=== PATIENT | male | born 1960 | race Caucasian/White ===

== ENCOUNTER 2020-10-30 15:06 | Inpatient (IN) ==
[2020-10-30] MEDS ORDERED: ZOFRAN INJ 4 MG VIAL IVP PRN (15:21)
[2020-10-30] MEDS ORDERED: REFLEX: PROVENTIL NEB & PulmiCORT NEB~ NEB SCH (15:30)
[2020-10-30] MEDS ORDERED: NS 1000 ML 1,000 ML IV SCH (16:00)
[2020-10-30] MEDS ORDERED: REGEN-COV VIAL 10 ML, DRUG FILTER EXTENSION SET * 1 EA in NS 100 ML IV 100 ML IV ONE ×2 (16:19)
[2020-10-30] MEDS ORDERED: SOLU-Medrol 125 MG VIAL IVP ONE (16:19)
[2020-10-30] MEDS ORDERED: TYLENOL 325 MG TAB PO ONE (16:19)
[2020-10-30] MEDS ORDERED: BENADRYL INJ 50 MG VIAL IV ONE (16:19)
[2020-10-30 16:35] LABS: BASOPHILS % (AUTO) 0.5 % (0.2-1.0); EOSINOPHILS % (AUTO) 0.4 % (0.9-2.9); HEMATOCRIT 46.7 % (42.0-54.0); HEMOGLOBIN 16.1 g/dL (13.5-18.0); LYMPHOCYTES # (AUTO) 1.1 X10^3/uL (1.3-2.9); LYMPHOCYTES % (AUTO) 17.4 % (21.0-51.0); MEAN CORPUSCULAR HEMOGLOBIN 30.5 pg (27.0-34.0); MEAN CORPUSCULAR HGB CONC 34.5 g/dL (33.0-35.0); MEAN CORPUSCULAR VOLUME 88.5 fL (80.0-100.0); MEAN PLATELET VOLUME 9.3 fL (7.4-11.0); MONOCYTES # (AUTO) 0.6 x10^3/uL (0.3-0.8); MONOCYTES % (AUTO) 8.8 % (0.0-13.0); NEUTROPHILS # (AUTO) 4.7 x10^3/uL (2.2-4.8); NEUTROPHILS % (AUTO) 72.9 % (42.0-75.0); PLATELET COUNT 184 X10^3/uL (150.0-450.0); RED BLOOD COUNT 5.27 X10^6/uL (4.7-6.0); RED CELL DISTRIBUTION WIDTH 13.9 % (11.6-16.5); WHITE BLOOD COUNT 6.4 X10^3/uL (3.6-10.0)
[2020-10-30 16:46] LABS: ALANINE AMINOTRANSFERASE 28 Units/L (12-78); ALBUMIN 2.7 g/dL (3.4-5.0); ALKALINE PHOSPHATASE 67 Units/L (46-116); ASPARTATE AMINO TRANSFERASE 62 Units/L (15-37); BLOOD UREA NITROGEN 43 mg/dL (7-18); CALCIUM 8.2 mg/dL (8.5-10.1); CARBON DIOXIDE 25.5 mmol/L (21-32); CHLORIDE 98 mmol/L (98-107); COR CA(FOR HYPOALB) 9.2 mg/dL (8.5-10.1); CREATININE 2.27 mg/dL (0.70-1.30); SODIUM 132 mmol/L (136-145); TOTAL PROTEIN 7.9 g/dL (6.4-8.2); TROPONIN I < 0.02 ng/mL (0-1.5); eGFR NON BLACK RACES 31 (>60)
[2020-10-30 17:42] LABS: ABG BASE EXCESS -1.8 mmol/L (-2.0-2.0); ABG HCO3 21.9 mmol/L (22-26)
[2020-10-30 17:45] VITALS: BMI 27.4
[2020-10-30] MEDS: D5 1/2 NS 1000 ML 1,000 ML IV SCH ×2 (18:03→23:25)
--- NOTE | 2020-10-30 18:52 | RAD ---
HISTORYHYPOXIA, COVID EXPOSURESTUDYCHEST, 1 [id number] areas of opacity are present in the peripheral lungs, left side more than right. Findings suggest bronchopneumonia. Findings were not present on the study from 2018.No pleural effusion or pneumothorax.Heart size is normal.Old posttraumatic changes in the proximal right humerus.IMPRESSION1. Findings consistent with bronchopneumoniaElectronically signed by: Todd Joe (Oct 30, 2020 18:50:39)
--- NOTE | 2020-10-30 19:09 | DR.H&P ---
H&P History & Physical for Day of: H&P Date: 10/30/20 Chief Complaint Chief Complaint: SOB/ Weakness/ Covid-19 Exposure Allergies Allergies Allergy/AdvReac Type Severity Reaction Status Date / Time No Known Drug Allergies Allergy Verified 11/23/17 01:08 History of Present Illness History of Present Illness: 59 yo wm with acute SOB, Weakness and hypoxia. His was diagnosed recently with Covid-19. I suspect the patient has Covid-19. Will admit to hospital for rapid testing and treatment. Past Medical History Past Medical History: CVA, Hypertension and MD Past Surgical History Surgical History: Angioplasty/Stents and Ortho Surgery Family History Family Medical History: Diabetes Mellitus, Cancer, MD, Coronary Artery Disease and Hypertension Social History Does patient currently use any type of tobacco product: No Have you used tobacco products in the last 12 months: Yes Type of Tobacco Use: Cigarettes Does any household member use tobacco: No Alcohol Use: None Drug Use: None Medications Home Medications: No Known Drug Allergies Allergy (Verified 11/23/17 01:08) Labs Result Diagrams: 10/31/20 05:30 10/31/20 05:30 Labs: Laboratory WBC 6.4 X10^3/uL (3.6-10.0) 10/30/20 16: RBC 5.27 X10^6/uL (4.7-6.0) 10/30/20 16:21 Hgb 16.1 g/dL (13.5-18.0) 10/30/20 16:21 Hct 46.7 % (42.0-54.0) 10/30/20 16:21 MCV 88.5 fL (80.0-100.0) 10/30/20 16:21 MCH 30.5 pg (27.0-34.0) 10/30/20 16:21 MCHC 34.5 g/dL (33.0-35.0) 10/30/20 16:21 RDW 13.9 % (11.6-16.5) 10/30/20 16:21 Plt Count 184 X10^3/uL (150.0-450.0) 10/30/20 16:21 MPV 9.3 fL (7.4-11.0) 10/30/20 16:21 Neut % (Auto) 72.9 % (42.0-75.0) 10/30/20 16:21 Lymph % (Auto) 17.4 % (21.0-51.0) L 10/30/20 16:21 [place] % (Auto) 8.8 % (0.0-13.0) 10/30/20 16:21 Eos % (Auto) 0.4 % (0.9-2.9) L 10/30/20 16:21 Baso % (Auto) 0.5 % (0.2-1.0) 10/30/20 16:21 Neut # (Auto) 4.7 x10^3/uL (2.2-4.8) 10/30/20 16:21 Lymph # (Auto) 1.1 X10^3/uL (1.3-2.9) L 10/30/20 16:21 [place] # (Auto) 0.6 x10^3/uL (0.3-0.8) 10/30/20 16:21 Eos # (Auto) 0.0 x10^3/uL (0.0-0.2) 10/30/20 16:21 Baso # (Auto) 0.0 X10^3/uL (0.0-0.1) 10/30/20 16:21 Absolute Nucleated RBC 0.1 /100WBC 10/30/20 16:21 Sample Site Rb 10/30/20 17:39 ABG pH 7.430 (7.35-7.45) 10/30/20 17:39 ABG pCO2 33.0 mmHg (35.0-45.0) L 10/30/20 17:39 ABG pO2 47.0 mmHg (80.0-100.0) L* 10/30/20 17:39 ABG HCO3 21.9 mmol/L (22-26) L 10/30/20 17:39 ABG O2 Saturation 84.0 % (90-100) L* 10/30/20 17:39 ABG Base Excess -1.8 mmol/L (-2.0-2.0) 10/30/20 17:39 Jeff Test N/a 10/30/20 17:39 A-a Gradient 61.0 mmHg 10/30/20 17:39 FiO2 21.0 10/30/20 17:39 Blood Gas Comments Pt eagle well eb 10/30/20 17:39 Sodium 132 mmol/L (136-145) L 10/30/20 16:21 Corrected Sodium TNP 10/30/20 16:21 Potassium 4.6 mmol/L (3.5-5.1) 10/30/20 16:21 Chloride 98 mmol/L (98-107) 10/30/20 16:21 Carbon Dioxide 25.5 mmol/L (21-32) 10/30/20 16:21 BUN 43 mg/dL (7-18) H 10/30/20 16:21 Creatinine 2.27 mg/dL (0.70-1.30) H 10/30/20 16:21 Est GFR (MDRD) Af Amer 38 (>60) L 10/30/20 16:21 Est GFR (MDRD) Non-Af 31 (>60) L 10/30/20 16:21 Glucose 99 mg/dL (65-99) 10/30/20 16:21 Calcium 8.2 mg/dL (8.5-10.1) L 10/30/20 16:21 Corrected Calcium 9.2 mg/dL (8.5-10.1) 10/30/20 16:21 Total Bilirubin 0.50 mg/dL (0.2-1.0) 10/30/20 16:21 AST 62 Units/L (15-37) H 10/30/20 16:21 ALT 28 Units/L (12-78) 10/30/20 16:21 Alkaline Phosphatase 67 Units/L (46-116) 10/30/20 16:21 Troponin I < 0.02 ng/mL (0-1.5) 10/30/20 16:21 Total Protein 7.9 g/dL (6.4-8.2) 10/30/20 16:21 Albumin 2.7 g/dL (3.4-5.0) L 10/30/20 16:21 Globulin 5.2 g/dL (2.5-4.5) H 10/30/20 16:21 Albumin/Globulin Ratio 0.5 Ratio (1.1-2.1) L 10/30/20 16:21 SARS-CoV-2 (PCR) Positive (NEGATIVE) A 10/30/20 16:35 Influenza Type A (PCR) Negative (NEGATIVE) 10/30/20 16:35 Influenza Type B (PCR) Negative (NEGATIVE) 10/30/20 16:35 RSV (PCR) Negative (NEGATIVE) 10/30/20 16:35 SARS CoV-2 RNA Rapid JEIMY Positive (NEGATIVE) A 10/30/20 16:05 Review of Systems Constitutional: Weakness and Malaise Eyes: No Symptoms Reported ENT: No Symptoms Reported Respiratory: Cough and Shortness of Breath Cardiovascular: No Symptoms Reported Gastrointestinal: Nausea and Vomiting Genitourinary: No Symptoms Reported Musculoskeletal: No Symptoms Reported Skin: No Symptoms Reported Neurological: Weakness Physical Exam Vital Signs: Temperature 98.2 F Pulse Rate 71 Respiratory Rate 24 Blood Pressure [Left Arm] 156/93 Blood Pressure 121/65 O2 Sat by Pulse Oximetry 88 Oriented: Unable to test Eyes: Normal Ear: Normal Nose: Normal Throat: Normal Respiratory: Diminished Throughout Cardiovascular: Normal : Normal Auscultation: Bowel Sounds: Normal Palpation: Normal Tenderness: Normal Skin: Normal Musculoskeletal: Normal Psychiatric: Normal Mood Description: Appropriate Affect: Normal Speech Pattern: Appropriate Assessment/Plan (1) SOB (shortness of breath): Status: Acute Plan: Albuterol nebs/ Covid Protocol. (2) Hypotension: Status: Acute Plan: IVF (3) Weakness: Status: Acute Plan: Treat patients current problems. (4) Dehydration: Status: Acute (5) Hyponatremia: Status: Acute Plan: IV hydration (6) COVID-19: Narrative Support Text: SOB Status: Acute Plan: Regen Cov Review H&P Reviewed: Yes Patient was examined?: Yes
[2020-10-30] MEDS: ZINC SULFATE PO SCH (20:24)
[2020-10-30] MEDS: PEPCID TAB 40 MG PO SCH (20:24)
[2020-10-30] MEDS: ASCORBIC ACID INJ MULTI-DOSE VIAL 1,500 MG in NS 100 ML IV 100 ML IV SCH (20:25)
[2020-10-30] MEDS: LOVENOX INJ 30 MG SYR SC SCH (20:26)
[2020-10-30] MEDS: VIBRAMYCIN 100 MG in D5W 250 ML IV 250 ML IV SCH (20:57)
[2020-10-30] MEDS: PULMICORT NEB TX 0.5 MG NEB SCH (21:00)
[2020-10-30] MEDS: ZOSYN VIAL 3.375 GRAMS 3.375 G in NS 50 ML IV + SPIKE MINIBAG* 50 ML IV SCH (22:59)
[2020-10-31] MEDS: ASCORBIC ACID INJ MULTI-DOSE VIAL 1,500 MG in NS 100 ML IV 100 ML IV SCH ×4 (02:37→20:12)
[2020-10-31] MEDS: D5 1/2 NS 1000 ML 1,000 ML IV SCH (04:49)
[2020-10-31] MEDS: ZOSYN VIAL 3.375 GRAMS 3.375 G in NS 50 ML IV + SPIKE MINIBAG* 50 ML IV SCH ×3 (05:00→22:46)
[2020-10-31 06:18] LABS: BASOPHILS % (AUTO) 0.4 % (0.2-1.0); HEMATOCRIT 40.4 % (42.0-54.0); HEMOGLOBIN 13.9 g/dL (13.5-18.0); LYMPHOCYTES # (AUTO) 0.8 X10^3/uL (1.3-2.9); LYMPHOCYTES % (AUTO) 27.4 % (21.0-51.0); MEAN CORPUSCULAR HEMOGLOBIN 30.5 pg (27.0-34.0); MEAN CORPUSCULAR HGB CONC 34.4 g/dL (33.0-35.0); MEAN CORPUSCULAR VOLUME 88.6 fL (80.0-100.0); MEAN PLATELET VOLUME 9.5 fL (7.4-11.0); MONOCYTES # (AUTO) 0.2 x10^3/uL (0.3-0.8); NEUTROPHILS # (AUTO) 1.9 x10^3/uL (2.2-4.8); NEUTROPHILS % (AUTO) 65.2 % (42.0-75.0); PLATELET COUNT 148 X10^3/uL (150.0-450.0); RED BLOOD COUNT 4.56 X10^6/uL (4.7-6.0); RED CELL DISTRIBUTION WIDTH 13.8 % (11.6-16.5)
[2020-10-31 06:31] LABS: ALBUMIN 2.2 g/dL (3.4-5.0); CALCIUM 7.9 mg/dL (8.5-10.1); CARBON DIOXIDE 22.4 mmol/L (21-32); COR CA(FOR HYPOALB) 9.3 mg/dL (8.5-10.1); CREATININE 2.2 mg/dL (0.70-1.30); TOTAL PROTEIN 6.8 g/dL (6.4-8.2)
[2020-10-31] MEDS: PROVENTIL NEB TX 0.083% 2.5MG/ 3ML NEB SCH ×3 (06:45→12:22)
[2020-10-31 07:28] LABS: GIANT PLATELET RARE; PLATELET MORPHOLOGY COMMENT ABNORMAL (NORMAL)
[2020-10-31] MEDS: PULMICORT NEB TX 0.5 MG NEB SCH ×2 (08:50→21:49)
[2020-10-31] MEDS ORDERED: VITAMIN A PO SCH (09:00)
[2020-10-31] MEDS ORDERED: VITAMIN D (1.25MG) PO SCH (09:00)
[2020-10-31] MEDS: PEPCID TAB 40 MG PO SCH ×2 (09:18→20:14)
[2020-10-31] MEDS: ZINC SULFATE PO SCH ×2 (09:18→20:14)
[2020-10-31] MEDS: TRICOR TAB 160 MG PO SCH (09:18)
[2020-10-31] MEDS: LOVENOX INJ 30 MG SYR SC SCH ×2 (09:19→20:13)
[2020-10-31] MEDS: VIBRAMYCIN 100 MG in D5W 250 ML IV 250 ML IV SCH ×2 (09:20→20:44)
[2020-10-31] MEDS: NS 1000 ML 1,000 ML IV SCH ×2 (09:30→17:06)
--- NOTE | 2020-10-31 13:05 | PCM.PROG ---
Progress Note Progress Note for Day of Date of Exam: 10/31/20 Subjective Subjective: Patient feels much better this am. Eating now. Resting much better. Does not feel SOB at this time. Past Medical Family Social History Past Med/Fam/Surg Hx: No changes since H&P Allergies: Allergies No Known Drug Allergies Allergy (Verified 11/23/17 01:08) Review of Systems ROS: Changes notes (describe) ROS changes noted: SOB resolved Vital Signs and I&O's Vital Signs: Temperature 97.5 F Pulse Rate 53 Respiratory Rate 21 Blood Pressure [Left Arm] 156/93 Blood Pressure 121/62 O2 Sat by Pulse Oximetry 92 Intake and Output: Intake & Output 10/29/20 10/30/20 10/31/20 11/01/20 11:59 11:59 11:59 11:59 Intake Total 2094 / 2094 Output Total 300 / 300 Balance 1795 / 1795 Physical Exam Oriented: Normal Eyes: Normal Ear: Normal Nose: Normal Throat: Normal Respiratory: Diminished Cardiovascular: Normal : Normal Auscultation: Bowel Sounds: Normal Tenderness: Normal Skin: Normal Musculoskeletal: Normal Psychiatric: Normal Mood Description: Appropriate Affect: Normal Speech Pattern: Appropriate Laboratory and Diagnostics Result Diagrams: 10/31/20 05:30 10/31/20 05:30 Labs: Laboratory WBC 3.0 X10^3/uL (3.6-10.0) L 10/31/20 05:30 RBC 4.56 X10^6/uL (4.7-6.0) L 10/31/20 05:30 Hgb 13.9 g/dL (13.5-18.0) D 10/31/20 05:30 Hct 40.4 % (42.0-54.0) L 10/31/20 05:30 MCV 88.6 fL (80.0-100.0) 10/31/20 05:30 MCH 30.5 pg (27.0-34.0) 10/31/20 05:30 MCHC 34.4 g/dL (33.0-35.0) 10/31/20 05:30 RDW 13.8 % (11.6-16.5) 10/31/20 05:30 Plt Count 148 X10^3/uL (150.0-450.0) L 10/31/20 05:30 Plt Count Comment Decreased (ADEQUATE) 10/31/20 05:30 MPV 9.5 fL (7.4-11.0) 10/31/20 05:30 Neut % (Auto) 65.2 % (42.0-75.0) 10/31/20 05:30 Lymph % (Auto) 27.4 % (21.0-51.0) 10/31/20 05:30 [place] % (Auto) 7.0 % (0.0-13.0) 10/31/20 05:30 Eos % (Auto) 0.0 % (0.9-2.9) L 10/31/20 05:30 Baso % (Auto) 0.4 % (0.2-1.0) 10/31/20 05:30 Neut # (Auto) 1.9 x10^3/uL (2.2-4.8) L 10/31/20 05:30 Lymph # (Auto) 0.8 X10^3/uL (1.3-2.9) L 10/31/20 05:30 [place] # (Auto) 0.2 x10^3/uL (0.3-0.8) L 10/31/20 05:30 Eos # (Auto) 0.0 x10^3/uL (0.0-0.2) 10/31/20 05:30 Baso # (Auto) 0.0 X10^3/uL (0.0-0.1) 10/31/20 05:30 Absolute Nucleated RBC 0.3 /100WBC 10/31/20 05:30 Giant Platelets Rare 10/31/20 05:30 Plt Morphology Comment Abnormal (NORMAL) 10/31/20 05:30 RBC Morphology Normal (NORMAL) 10/31/20 05:30 Sample Site Rbra 10/30/20 17:39 ABG pH 7.430 (7.35-7.45) 10/30/20 17:39 ABG pCO2 33.0 mmHg (35.0-45.0) L 10/30/20 17:39 ABG pO2 47.0 mmHg (80.0-100.0) L* 10/30/20 17:39 ABG HCO3 21.9 mmol/L (22-26) L 10/30/20 17:39 ABG O2 Saturation 84.0 % (90-100) L* 10/30/20 17:39 ABG Base Excess -1.8 mmol/L (-2.0-2.0) 10/30/20 17:39 Jeff Test N/a 10/30/20 17:39 A-a Gradient 61.0 mmHg 10/30/20 17:39 FiO2 21.0 10/30/20 17:39 Blood Gas Comments Pt eagle well eb 10/30/20 17:39 Sodium 133 mmol/L (136-145) L 10/31/20 05:30 Corrected Sodium 136 mmol/L (136-145) 10/31/20 05:30 Potassium 4.5 mmol/L (3.5-5.1) 10/31/20 05:30 Chloride 101 mmol/L (98-107) 10/31/20 05:30 Carbon Dioxide 22.4 mmol/L (21-32) 10/31/20 05:30 BUN 46 mg/dL (7-18) H 10/31/20 05:30 Creatinine 2.20 mg/dL (0.70-1.30) H 10/31/20 05:30 Est GFR (MDRD) Af Amer 39 (>60) L 10/31/20 05:30 Est GFR (MDRD) Non-Af 33 (>60) L 10/31/20 05:30 Glucose 207 mg/dL (65-99) H 10/31/20 05:30 Calcium 7.9 mg/dL (8.5-10.1) L 10/31/20 05:30 Corrected Calcium 9.3 mg/dL (8.5-10.1) 10/31/20 05:30 Total Bilirubin 0.40 mg/dL (0.2-1.0) 10/31/20 05:30 AST 46 Units/L (15-37) H 10/31/20 05:30 ALT 23 Units/L (12-78) 10/31/20 05:30 Alkaline Phosphatase 55 Units/L (46-116) 10/31/20 05:30 Troponin I < 0.02 ng/mL (0-1.5) 10/30/20 16:21 Total Protein 6.8 g/dL (6.4-8.2) 10/31/20 05:30 Albumin 2.2 g/dL (3.4-5.0) L 10/31/20 05:30 Globulin 4.6 g/dL (2.5-4.5) H 10/31/20 05:30 Albumin/Globulin Ratio 0.5 Ratio (1.1-2.1) L 10/31/20 05:30 SARS-CoV-2 (PCR) Positive (NEGATIVE) A 10/30/20 16:35 Influenza Type A (PCR) Negative (NEGATIVE) 10/30/20 16:35 Influenza Type B (PCR) Negative (NEGATIVE) 10/30/20 16:35 RSV (PCR) Negative (NEGATIVE) 10/30/20 16:35 SARS CoV-2 RNA Rapid JEIMY Positive (NEGATIVE) A 10/30/20 16:05 Radiology Reviewed: Yes Plan (1) SOB (shortness of breath): Status: Acute Plan: Albuterol nebs/ Covid Protocol. (2) Hypotension: Status: Resolved Narrative Support Text: SOB has resolved. Plan: IVF (3) Weakness: Status: Resolved Narrative Support Text: Less weak today. Plan: Treat patients current problems. (4) Dehydration: Status: Acute Plan: IVF (5) Hyponatremia: Status: Acute Plan: Change IVF to NS at 125 ml/hr (6) COVID-19: Status: Acute Plan: Regen Cov given last night. (7) Hypoxia: Status: Acute Plan: Continue supplemental O2 via NC at 3 L. Will ween down as tolerated.
[2020-11-01] MEDS: NS 1000 ML 1,000 ML IV SCH ×2 (00:08→09:07)
[2020-11-01] MEDS: PROVENTIL NEB TX 0.083% 2.5MG/ 3ML NEB SCH ×3 (00:44→09:34)
[2020-11-01] MEDS: ASCORBIC ACID INJ MULTI-DOSE VIAL 1,500 MG in NS 100 ML IV 100 ML IV SCH ×2 (02:14→09:07)
[2020-11-01] MEDS: ZOSYN VIAL 3.375 GRAMS 3.375 G in NS 50 ML IV + SPIKE MINIBAG* 50 ML IV SCH (05:01)
[2020-11-01 05:12] LABS: BASOPHILS # (AUTO) 0.1 X10^3/uL (0.0-0.1); BASOPHILS % (AUTO) 0.8 % (0.2-1.0); EOSINOPHILS % (AUTO) 0.2 % (0.9-2.9); HEMATOCRIT 38.7 % (42.0-54.0); HEMOGLOBIN 13.2 g/dL (13.5-18.0); LYMPHOCYTES # (AUTO) 2.4 X10^3/uL (1.3-2.9); LYMPHOCYTES % (AUTO) 21.6 % (21.0-51.0); MEAN CORPUSCULAR VOLUME 88.2 fL (80.0-100.0); MEAN PLATELET VOLUME 9.4 fL (7.4-11.0); MONOCYTES # (AUTO) 0.8 x10^3/uL (0.3-0.8); NEUTROPHILS # (AUTO) 7.7 x10^3/uL (2.2-4.8); NEUTROPHILS % (AUTO) 70.4 % (42.0-75.0); PLATELET COUNT 174 X10^3/uL (150.0-450.0); RED BLOOD COUNT 4.39 X10^6/uL (4.7-6.0); RED CELL DISTRIBUTION WIDTH 13.4 % (11.6-16.5)
[2020-11-01 05:29] LABS: ALBUMIN 2.2 g/dL (3.4-5.0); CALCIUM 7.5 mg/dL (8.5-10.1); CARBON DIOXIDE 20.5 mmol/L (21-32); COR CA(FOR HYPOALB) 8.9 mg/dL (8.5-10.1); CREATININE 1.93 mg/dL (0.70-1.30); TOTAL PROTEIN 6.3 g/dL (6.4-8.2)
--- NOTE | 2020-11-01 05:59 | RAD ---
PROCEDURE: Chest X-ray 1 View .HISTORY: COVID+ .TECHNIQUE: AP view .COMPARISON: 10/30/2020.TECHNICAL QUALITY: Satisfactory .FINDINGS:Normal size heart .Mediastinum and hilar regions show no masses or lymphadenopathy .Normal central vascularity .Continued increased density peripheral lung wilson bilaterally could be related to pneumonia or chest wall. No pleural fluid or pneumothorax.No acute bony abnormality .IMPRESSION:Unchanged bilateral pneumonia versus chest wall. Follow-up films or CT may be helpful for clarification.Electronically signed by: Anton Gipson (Nov 01, 2020 05:56:50)
[2020-11-01] MEDS: PULMICORT NEB TX 0.5 MG NEB SCH (08:05)
[2020-11-01] MEDS ORDERED: PEPCID TAB 40 MG PO SCH (09:00)
[2020-11-01] MEDS ORDERED: VITAMIN A PO SCH (09:00)
[2020-11-01] MEDS ORDERED: VITAMIN D3 125 mcg (5,000 UNITS) PO SCH (09:00)
[2020-11-01] MEDS: LOVENOX INJ 30 MG SYR SC SCH (09:07)
[2020-11-01] MEDS: TRICOR TAB 160 MG PO SCH (09:08)
[2020-11-01] MEDS: ZINC SULFATE PO SCH (09:11)
[2020-11-01] MEDS: VIBRAMYCIN 100 MG in D5W 250 ML IV 250 ML IV SCH (09:24)
[2020-11-01 12:14] VITALS: BP 176/79
--- NOTE | 2020-11-01 15:27 | W.DIS.FURT ---
Summary of Discharge Discharge Summary of Date Date of Exam: 11/01/20 Admission Date Date of Admission: 10/30/20 Admission Diagnosis Hospital Course: The patient was admitted to hospital for Covid-19 with hypoxia, dehydration and hypotension. He was given Regen Cov after admission and improved significantly over the next 2 days. On day 3 he was ready to go home. Vital Signs: Vital Signs (72 hours) 10/30/20 17:08 10/30/20 18:00 10/30/20 18:04 Temperature 98.2 F Pulse Rate 62 71 Respiratory Rate 20 21 24 Blood Pressure 121/65 O2 Sat by Pulse Oximetry 87 L 88 L 10/30/20 19:00 10/30/20 19:04 10/30/20 20:00 Temperature 98.7 F Pulse Rate 63 61 Respiratory Rate 24 26 H 25 H Blood Pressure 124/73 112/65 O2 Sat by Pulse Oximetry 94 L 93 L 10/30/20 21:00 10/30/20 22:00 10/30/20 23:00 Temperature 97.8 F Pulse Rate 58 L 56 L 53 L Respiratory Rate 20 20 23 Blood Pressure 93/50 91/54 108/63 O2 Sat by Pulse Oximetry 95 96 96 10/31/20 00:00 10/31/20 00:45 10/31/20 01:00 Temperature Pulse Rate 50 L 50 L 58 L Respiratory Rate 15 20 23 Blood Pressure 112/57 113/77 O2 Sat by Pulse Oximetry 96 91 L 92 L 10/31/20 01:01 10/31/20 01:15 10/31/20 01:30 Temperature Pulse Rate 58 L 50 L 48 L Respiratory Rate 22 18 21 Blood Pressure 113/77 O2 Sat by Pulse Oximetry 92 L 94 L 97 10/31/20 01:45 10/31/20 02:00 10/31/20 02:15 Temperature Pulse Rate 50 L 50 L 51 L Respiratory Rate 18 18 18 Blood Pressure 103/63 O2 Sat by Pulse Oximetry 95 96 96 10/31/20 02:30 10/31/20 02:45 10/31/20 03:00 Temperature Pulse Rate 47 L 45 L 45 L Respiratory Rate 20 21 20 Blood Pressure 83/50 O2 Sat by Pulse Oximetry 89 L 93 L 93 L 10/31/20 03:01 10/31/20 03:02 10/31/20 03:03 Temperature Pulse Rate 44 L 48 L 47 L Respiratory Rate 21 20 20 Blood Pressure 81/49 78/45 83/50 O2 Sat by Pulse Oximetry 92 L 93 L 93 L 10/31/20 03:15 10/31/20 03:30 10/31/20 03:45 Temperature Pulse Rate 45 L 46 L 54 L Respiratory Rate 18 20 19 Blood Pressure O2 Sat by Pulse Oximetry 93 L 93 L 95 10/31/20 04:00 10/31/20 04:15 10/31/20 04:30 Temperature 97.5 F L Pulse Rate 46 L 49 L 47 L Respiratory Rate 36 H 32 H 20 Blood Pressure 133/70 O2 Sat by Pulse Oximetry 92 L 91 L 93 L 10/31/20 04:31 10/31/20 04:45 10/31/20 05:00 Temperature Pulse Rate 45 L 56 L Respiratory Rate 17 16 17 Blood Pressure 132/74 O2 Sat by Pulse Oximetry 95 96 97 10/31/20 05:15 10/31/20 05:30 10/31/20 05:45 Temperature Pulse Rate 46 L 47 L 46 L Respiratory Rate 18 22 18 Blood Pressure O2 Sat by Pulse Oximetry 96 91 L 91 L 10/31/20 06:00 10/31/20 06:01 10/31/20 06:15 Temperature Pulse Rate 43 L 44 L 44 L Respiratory Rate 21 20 19 Blood Pressure 98/56 98/56 O2 Sat by Pulse Oximetry 92 L 90 L 91 L 10/31/20 06:30 10/31/20 06:45 10/31/20 07:00 Temperature Pulse Rate 45 L 50 L 48 L Respiratory Rate 17 32 H 21 Blood Pressure O2 Sat by Pulse Oximetry 90 L 96 85 L 10/31/20 07:01 10/31/20 07:15 10/31/20 07:30 Temperature Pulse Rate 49 L 51 L 60 Respiratory Rate 21 20 34 H Blood Pressure 132/68 O2 Sat by Pulse Oximetry 85 L 86 L 89 L 10/31/20 07:45 10/31/20 08:00 10/31/20 08:01 Temperature 97.9 F Pulse Rate 56 L 53 L 53 L Respiratory Rate 21 16 17 Blood Pressure 152/80 O2 Sat by Pulse Oximetry 91 L 94 L 94 L 10/31/20 08:15 10/31/20 08:30 10/31/20 08:45 Temperature Pulse Rate 55 L 52 L 54 L Respiratory Rate 20 21 19 Blood Pressure O2 Sat by Pulse Oximetry 89 L 87 L 89 L 10/31/20 09:00 10/31/20 09:01 10/31/20 09:15 Temperature Pulse Rate 54 L 54 L 54 L Respiratory Rate 18 18 21 Blood Pressure 108/57 O2 Sat by Pulse Oximetry 94 L 94 L 91 L 10/31/20 09:30 10/31/20 09:50 10/31/20 09:51 Temperature Pulse Rate 61 57 L 56 L Respiratory Rate 30 H 25 H 15 Blood Pressure 134/66 O2 Sat by Pulse Oximetry 87 L 82 L 85 L 10/31/20 10:00 10/31/20 10:15 10/31/20 10:30 Temperature Pulse Rate 55 L 53 L 53 L Respiratory Rate 17 22 21 Blood Pressure 121/62 O2 Sat by Pulse Oximetry 89 L 92 L 92 L 10/31/20 10:45 10/31/20 11:00 10/31/20 11:15 Temperature Pulse Rate 51 L 51 L 51 L Respiratory Rate 17 19 20 Blood Pressure 132/63 O2 Sat by Pulse Oximetry 95 92 L 94 L 10/31/20 11:30 10/31/20 11:45 10/31/20 12:00 Temperature Pulse Rate 50 L 54 L 62 Respiratory Rate 23 21 18 Blood Pressure O2 Sat by Pulse Oximetry 92 L 92 L 94 L 10/31/20 12:01 10/31/20 12:15 10/31/20 12:30 Temperature 98 F Pulse Rate 59 L 56 L 69 Respiratory Rate 21 18 24 Blood Pressure 147/66 O2 Sat by Pulse Oximetry 93 L 96 90 L 10/31/20 12:45 10/31/20 13:00 10/31/20 13:15 Temperature Pulse Rate 59 L 57 L 59 L Respiratory Rate 23 21 21 Blood Pressure 113/57 O2 Sat by Pulse Oximetry 91 L 93 L 94 L 10/31/20 13:30 10/31/20 13:45 10/31/20 14:00 Temperature Pulse Rate 57 L 55 L 60 Respiratory Rate 24 19 22 Blood Pressure 110/57 O2 Sat by Pulse Oximetry 92 L 91 L 89 L 10/31/20 14:15 10/31/20 14:30 10/31/20 14:45 Temperature Pulse Rate 55 L 52 L 57 L Respiratory Rate 19 20 21 Blood Pressure O2 Sat by Pulse Oximetry 90 L 93 L 91 L 10/31/20 15:00 10/31/20 15:01 10/31/20 15:15 Temperature Pulse Rate 63 60 58 L Respiratory Rate 25 H 27 H 23 Blood Pressure 133/67 O2 Sat by Pulse Oximetry 86 L 88 L 91 L 10/31/20 15:30 10/31/20 15:45 10/31/20 16:00 Temperature 97.5 F L Pulse Rate 57 L 59 L 59 L Respiratory Rate 19 24 20 Blood Pressure 135/77 O2 Sat by Pulse Oximetry 93 L 90 L 91 L 10/31/20 16:15 10/31/20 16:30 10/31/20 16:45 Temperature Pulse Rate 60 59 L 55 L Respiratory Rate 22 20 24 Blood Pressure O2 Sat by Pulse Oximetry 94 L 97 90 L 10/31/20 17:00 10/31/20 17:15 10/31/20 17:30 Temperature Pulse Rate 68 69 59 L Respiratory Rate 29 H 31 H 23 Blood Pressure 134/65 O2 Sat by Pulse Oximetry 98 90 L 91 L 10/31/20 17:45 10/31/20 17:59 10/31/20 18:00 Temperature Pulse Rate 60 59 L Respiratory Rate 22 19 Blood Pressure 135/78 O2 Sat by Pulse Oximetry 91 L 96 10/31/20 18:01 10/31/20 18:15 10/31/20 18:30 Temperature Pulse Rate 58 L 58 L 63 Respiratory Rate 22 19 21 Blood Pressure O2 Sat by Pulse Oximetry 96 94 L 93 L 10/31/20 18:45 10/31/20 19:00 10/31/20 19:15 Temperature Pulse Rate 59 L 67 61 Respiratory Rate 19 20 19 Blood Pressure 167/86 O2 Sat by Pulse Oximetry 98 93 L 97 10/31/20 19:30 10/31/20 19:45 10/31/20 20:00 Temperature 97.7 F Pulse Rate 63 62 59 L Respiratory Rate 18 22 20 Blood Pressure 103/52 O2 Sat by Pulse Oximetry 97 94 L 92 L 10/31/20 20:01 10/31/20 20:15 10/31/20 20:30 Temperature Pulse Rate 60 63 66 Respiratory Rate 19 26 H 25 H Blood Pressure 103/52 O2 Sat by Pulse Oximetry 92 L 96 87 L 10/31/20 20:45 10/31/20 21:00 10/31/20 21:15 Temperature Pulse Rate 61 62 58 L Respiratory Rate 21 20 18 Blood Pressure 131/69 O2 Sat by Pulse Oximetry 91 L 90 L 96 10/31/20 21:30 10/31/20 21:45 10/31/20 21:50 Temperature Pulse Rate 57 L 61 60 Respiratory Rate 18 11 L Blood Pressure O2 Sat by Pulse Oximetry 96 93 L 95 10/31/20 22:00 10/31/20 22:15 10/31/20 22:30 Temperature Pulse Rate 56 L 56 L 57 L Respiratory Rate 21 18 21 Blood Pressure 126/69 O2 Sat by Pulse Oximetry 90 L 96 92 L 10/31/20 22:45 10/31/20 23:00 10/31/20 23:01 Temperature Pulse Rate 63 60 51 L Respiratory Rate 29 H 22 23 Blood Pressure 107/51 107/51 O2 Sat by Pulse Oximetry 93 L 87 L 88 L 10/31/20 23:15 10/31/20 23:30 10/31/20 23:45 Temperature Pulse Rate 53 L 52 L 54 L Respiratory Rate 20 22 21 Blood Pressure O2 Sat by Pulse Oximetry 91 L 95 96 11/01/20 00:00 11/01/20 00:01 11/01/20 00:15 Temperature 97.7 F Pulse Rate 52 L 52 L 57 L Respiratory Rate 19 18 14 Blood Pressure 129/67 129/67 O2 Sat by Pulse Oximetry 92 L 92 L 97 11/01/20 00:30 11/01/20 00:44 11/01/20 00:45 Temperature Pulse Rate 57 L 62 66 Respiratory Rate 21 22 Blood Pressure O2 Sat by Pulse Oximetry 91 L 94 L 93 L 11/01/20 01:00 11/01/20 01:15 11/01/20 01:30 Temperature Pulse Rate 63 63 65 Respiratory Rate 20 19 18 Blood Pressure 111/63 O2 Sat by Pulse Oximetry 91 L 97 94 L 11/01/20 01:45 11/01/20 02:00 11/01/20 02:15 Temperature Pulse Rate 63 69 58 L Respiratory Rate 16 15 18 Blood Pressure 119/78 O2 Sat by Pulse Oximetry 96 100 94 L 11/01/20 02:30 11/01/20 02:45 11/01/20 03:00 Temperature Pulse Rate 61 65 60 Respiratory Rate 25 H 25 H 14 Blood Pressure 97/60 O2 Sat by Pulse Oximetry 92 L 92 L 85 L 11/01/20 03:01 11/01/20 03:15 11/01/20 03:30 Temperature Pulse Rate 56 L 50 L 65 Respiratory Rate 21 23 31 H Blood Pressure 97/60 O2 Sat by Pulse Oximetry 86 L 95 95 11/01/20 03:45 11/01/20 04:00 11/01/20 04:15 Temperature 98.0 F Pulse Rate 60 53 L 55 L Respiratory Rate 21 20 22 Blood Pressure 87/49 O2 Sat by Pulse Oximetry 96 95 98 11/01/20 04:30 11/01/20 04:45 11/01/20 05:00 Temperature Pulse Rate 59 L 62 57 L Respiratory Rate 23 15 20 Blood Pressure 127/76 O2 Sat by Pulse Oximetry 88 L 90 L 94 L 11/01/20 05:15 11/01/20 05:30 11/01/20 05:45 Temperature Pulse Rate 57 L 62 55 L Respiratory Rate 21 23 7 L Blood Pressure O2 Sat by Pulse Oximetry 92 L 96 98 11/01/20 06:00 11/01/20 06:01 11/01/20 06:08 Temperature Pulse Rate 60 59 L 61 Respiratory Rate 11 L 18 Blood Pressure 148/74 148/74 O2 Sat by Pulse Oximetry 96 96 93 L 11/01/20 06:15 11/01/20 06:30 11/01/20 06:45 Temperature Pulse Rate 61 56 L 80 Respiratory Rate 22 20 24 Blood Pressure O2 Sat by Pulse Oximetry 94 L 96 97 11/01/20 07:00 11/01/20 07:01 11/01/20 07:15 Temperature Pulse Rate 72 67 64 Respiratory Rate 22 24 21 Blood Pressure 114/72 O2 Sat by Pulse Oximetry 96 95 99 11/01/20 07:30 11/01/20 07:45 11/01/20 08:00 Temperature 97.8 F Pulse Rate 65 66 76 Respiratory Rate 20 23 30 H Blood Pressure O2 Sat by Pulse Oximetry 98 96 93 L 11/01/20 08:01 11/01/20 08:15 11/01/20 08:30 Temperature Pulse Rate 73 63 71 Respiratory Rate 36 H 24 37 H Blood Pressure 133/72 O2 Sat by Pulse Oximetry 91 L 94 L 92 L 11/01/20 08:45 11/01/20 09:00 11/01/20 09:15 Temperature Pulse Rate 68 61 60 Respiratory Rate 28 H 21 26 H Blood Pressure 156/74 O2 Sat by Pulse Oximetry 91 L 95 99 11/01/20 09:30 11/01/20 09:45 11/01/20 10:00 Temperature Pulse Rate 73 64 62 Respiratory Rate 32 H 26 H 15 Blood Pressure O2 Sat by Pulse Oximetry 99 97 100 11/01/20 10:01 11/01/20 10:15 11/01/20 10:30 Temperature Pulse Rate 59 L 64 59 L Respiratory Rate 24 23 26 H Blood Pressure 141/76 O2 Sat by Pulse Oximetry 99 98 99 11/01/20 10:45 11/01/20 11:00 11/01/20 11:15 Temperature Pulse Rate 74 66 65 Respiratory Rate 27 H 24 24 Blood Pressure 158/78 O2 Sat by Pulse Oximetry 98 99 98 11/01/20 11:30 11/01/20 11:45 11/01/20 12:00 Temperature Pulse Rate 67 70 68 Respiratory Rate 23 28 H 26 H Blood Pressure 176/79 O2 Sat by Pulse Oximetry 98 92 L 97 11/01/20 12:26 11/01/20 12:30 11/01/20 12:52 Temperature Pulse Rate 80 65 71 Respiratory Rate 29 H 28 H Blood Pressure O2 Sat by Pulse Oximetry 88 L 94 L 11/01/20 13:00 11/01/20 13:15 Temperature Pulse Rate 65 65 Respiratory Rate Blood Pressure O2 Sat by Pulse Oximetry 99 98 Labs: Laboratory Last Values WBC 11.0 X10^3/uL (3.6-10.0) H D 11/01/20 04:55 RBC 4.39 X10^6/uL (4.7-6.0) L 11/01/20 04:55 Hgb 13.2 g/dL (13.5-18.0) L 11/01/20 04:55 Hct 38.7 % (42.0-54.0) L 11/01/20 04:55 MCV 88.2 fL (80.0-100.0) 11/01/20 04:55 MCH 30.0 pg (27.0-34.0) 11/01/20 04:55 MCHC 34.0 g/dL (33.0-35.0) 11/01/20 04:55 RDW 13.4 % (11.6-16.5) 11/01/20 04:55 Plt Count 174 X10^3/uL (150.0-450.0) 11/01/20 04:55 Plt Count Comment Decreased (ADEQUATE) 10/31/20 05:30 MPV 9.4 fL (7.4-11.0) 11/01/20 04:55 Neut % (Auto) 70.4 % (42.0-75.0) 11/01/20 04:55 Lymph % (Auto) 21.6 % (21.0-51.0) 11/01/20 04:55 Morrill % (Auto) 7.0 % (0.0-13.0) 11/01/20 04:55 Eos % (Auto) 0.2 % (0.9-2.9) L 11/01/20 04:55 Baso % (Auto) 0.8 % (0.2-1.0) 11/01/20 04:55 Neut # (Auto) 7.7 x10^3/uL (2.2-4.8) H 11/01/20 04:55 Lymph # (Auto) 2.4 X10^3/uL (1.3-2.9) 11/01/20 04:55 Morrill # (Auto) 0.8 x10^3/uL (0.3-0.8) 11/01/20 04:55 Eos # (Auto) 0.0 x10^3/uL (0.0-0.2) 11/01/20 04:55 Baso # (Auto) 0.1 X10^3/uL (0.0-0.1) 11/01/20 04:55 Absolute Nucleated RBC 0.1 /100WBC 11/01/20 04:55 Giant Platelets Rare 10/31/20 05:30 Plt Morphology Comment Abnormal (NORMAL) 10/31/20 05:30 RBC Morphology Normal (NORMAL) 10/31/20 05:30 Sample Site [facility] 10/30/20 17:39 ABG pH 7.430 (7.35-7.45) 10/30/20 17:39 ABG pCO2 33.0 mmHg (35.0-45.0) L 10/30/20 17:39 ABG pO2 47.0 mmHg (80.0-100.0) L* 10/30/20 17:39 ABG HCO3 21.9 mmol/L (22-26) L 10/30/20 17:39 ABG O2 Saturation 84.0 % (90-100) L* 10/30/20 17:39 ABG Base Excess -1.8 mmol/L (-2.0-2.0) 10/30/20 17:39 Jeff Test N/a 10/30/20 17:39 A-a Gradient 61.0 mmHg 10/30/20 17:39 FiO2 21.0 10/30/20 17:39 Blood Gas Comments [facility] 10/30/20 17:39 Sodium 142 mmol/L (136-145) 11/01/20 04:55 Corrected Sodium 142 mmol/L (136-145) 11/01/20 04:55 Potassium 3.8 mmol/L (3.5-5.1) 11/01/20 04:55 Chloride 109 mmol/L (98-107) H 11/01/20 04:55 Carbon Dioxide 20.5 mmol/L (21-32) L 11/01/20 04:55 BUN 33 mg/dL (7-18) H 11/01/20 04:55 Creatinine 1.93 mg/dL (0.70-1.30) H 11/01/20 04:55 Est GFR (MDRD) Af Amer 46 (>60) L 11/01/20 04:55 Est GFR (MDRD) Non-Af 38 (>60) L 11/01/20 04:55 Glucose 115 mg/dL (65-99) H 11/01/20 04:55 Calcium 7.5 mg/dL (8.5-10.1) L 11/01/20 04:55 Corrected Calcium 8.9 mg/dL (8.5-10.1) 11/01/20 04:55 Total Bilirubin 0.30 mg/dL (0.2-1.0) 11/01/20 04:55 AST 44 Units/L (15-37) H 11/01/20 04:55 ALT 28 Units/L (12-78) 11/01/20 04:55 Alkaline Phosphatase 60 Units/L (46-116) 11/01/20 04:55 Troponin I < 0.02 ng/mL (0-1.5) 10/30/20 16:21 Total Protein 6.3 g/dL (6.4-8.2) L 11/01/20 04:55 Albumin 2.2 g/dL (3.4-5.0) L 11/01/20 04:55 Globulin 4.1 g/dL (2.5-4.5) 11/01/20 04:55 Albumin/Globulin Ratio 0.5 Ratio (1.1-2.1) L 11/01/20 04:55 SARS-CoV-2 (PCR) Positive (NEGATIVE) A 10/30/20 16:35 Influenza Type A (PCR) Negative (NEGATIVE) 10/30/20 16:35 Influenza Type B (PCR) Negative (NEGATIVE) 10/30/20 16:35 RSV (PCR) Negative (NEGATIVE) 10/30/20 16:35 SARS CoV-2 RNA Rapid JEIMY Positive (NEGATIVE) A 10/30/20 16:05 Reason For Visit: HYPOXIA/HYPOTENSION Discharge Date Discharge Date: 11/01/20 Discharge Diagnosis All Active Problems (Updated 10/31/20 @ 13:04 by YADIRA WINSLOW) Hypoxia (Acute) COVID-19 (Acute) Hyponatremia (Acute) Dehydration (Acute) SOB (shortness of breath) (Acute) Weakness on left side of face (Acute) Cerebrovascular accident (CVA) (Acute) Abdominal pain, acute, generalized (Acute) Partial bowel obstruction (Acute) Aortic aneurysm (Acute) Amphetamine abuse (Acute) Essential hypertension (Acute) Inguinal hernia (Acute) Nodule of right lung (Acute) Hypertension (Acute) Acute hip pain (Acute) Erosive osteoarthritis (Acute) Plan of Treatment: Continue with present treatment and follow up plan. Pt is to keep follow up appointment as instructed and take medications as ordered. Discharge Medications Discharge Medications: No Known Drug Allergies Allergy (Verified 11/23/17 01:08) CONTINUE taking the following medications amlodipine 10 mg PO DAILY 10/31/20 [History] aspirin 81 mg PO DAILY 10/31/20 [History] hydroxyzine HCl 25 mg PO Q6H PRN 10/31/20 [History] losartan 50 mg PO DAILY 10/31/20 [History] New Prescriptions albuterol sulfate 2 puff INHALATION Q6H PRN #1 g 11/01/20 [Rx] doxycycline monohydrate 100 mg PO BID 7 Days #14 cap 11/01/20 [Rx] methylprednisolone [Medrol (Brady)] See Rx Instructions .ROUTE .COMPLEX 6 Days ea 11/01/20 [Rx] Discharge Plan Discharge Plan Hospital Course: The patient was admitted to hospital for Covid-19 with hypoxia, dehydration and hypotension. He was given Regen Cov after admission and improved significantly over the next 2 days. On day 3 he was ready to go home. Patient Disposition: 01 HOME, SELF-CARE Condition: Stable Health Concerns: Post Hospitalization: new medications and changes needed to prevent readmission or further decline. Pt educated and given instructions on all concerns. Care Plan Goals: Problem: Respiratory Complications Goal: Improved Uncomplicated Respiratory Status Instructions: Follow provided instructions. Follow up with primary physician as directed. Contact primary care physician or report to the closest Emergency Room if condition worsens. Plan of Treatment: Continue with present treatment and follow up plan. Pt is to keep follow up appointment as instructed and take medications as ordered. Prescriptions: New methylprednisolone [Medrol (Brady)] 4 mg Tablets,Dose Pack See Rx Instructions .ROUTE .COMPLEX 6 Days RF: 0 albuterol sulfate 90 mcg/actuation Hfa Aerosol Inhaler 2 puff INHALATION Q6H PRNQty: 1 RF: 0 doxycycline monohydrate 100 mg Capsule 100 mg PO BID 7 Days Qty: 14 RF: 0 Continued aspirin 81 mg Tablet 81 mg PO DAILY RF: 0 hydroxyzine HCl 25 mg Tablet 25 mg PO Q6H PRNRF: 0 losartan 50 mg Tablet 50 mg PO DAILY RF: 0 amlodipine 10 mg Tablet 10 mg PO DAILY RF: 0 Follow ups/Referrals Follow ups/Referrals: [facility] [Other] YADIRA WINSLOW [Primary Care Provider] - 1 WEEK Instructions Instructions: Fall Prevention in the Home, Adult, [id number], Hypotension, Sxbz-mx-[id number], Viral Respiratory Infection, Nltm-Ce-Kptq, Dehydration, Adult, Pegu-iu-Ubcd, Hand Washing, Zruu-pm-Rwru, Hypoxia, Droplet Precautions, Easy-to- Read, Contact Precautions, Hvuj-vd-Yopl, Hypertension, Faev-xr-Amhn, Hyponatremia, Faqo-md-Cczv, Community-Acquired Pneumonia, Adult, Ufuq-io-Hwey Stand Alone Forms: Precautions for COVID19, [facility], Patient Portal, Social Distancing
--- NOTE | 2020-11-01 15:34 | DR.CARTERD ---
Discharge Summary for: Discharge Summary for Date of:: 11/01/20 Admission Date Date of Admission: 10/30/20 Admission Diagnoses Admission Diagnosis: Hypoxia/ Hypotension/ Suspected Covid-19/ Weakness Discharge Date Discharge Date: 11/01/20 Discharge Diagnoses Discharge Diagnosis: 1. Covid-19 2. Hypotension from dehydration resolved. 3. Hypoxia resolved/ much improved. Hospital Course Hospital Course: After patient was admitted he tested positive for Covid. He was given IV Regen Cov. His codition greatly improved over the next 2 days and his hydration status improved as well. By the 3rd morning his O2 sat was improved as well. He is wanting to go home this am. Discharge Medications Discharge Medications: Home Medication List amlodipine 10 mg PO DAILY 10/31/20 [History] aspirin 81 mg PO DAILY 10/31/20 [History] hydroxyzine HCl 25 mg PO Q6H PRN 10/31/20 [History] losartan 50 mg PO DAILY 10/31/20 [History] albuterol sulfate 2 puff INHALATION Q6H PRN #1 g 11/01/20 [Rx] doxycycline monohydrate 100 mg PO BID 7 Days #14 cap 11/01/20 [Rx] methylprednisolone [Medrol (Brady)] See Rx Instructions .ROUTE .COMPLEX 6 Days ea 11/01/20 [Rx] Prescriptions: albuterol sulfate YADIRA WINSLOW doxycycline monohydrate YADIRA WINSLOW methylprednisolone [Medrol (Brady)] YADIRA WINSLOW Discharge Disposition Discharge Disposition: Patient is discharged home in stable condition.
== END 2020-11-01 13:15 | disposition home or self-care (01) | DRG 177 ==
LOC: ICU 15:13
PROVIDERS: ADMIT Family Medicine; ATTEND Family Medicine
DX: R06.02 Shortness of breath; R53.1 Weakness; E86.0 Dehydration; J12.82 Pneumonia due to coronavirus disease 2019; R26.89 Other abnormalities of gait and mobility; E87.1 Hypo-osmolality and hyponatremia; I95.89 Other hypotension; U07.1 COVID-19; R09.02 Hypoxemia